=== PATIENT | female | born 1970 | race Hispanic/Latino ===

== ENCOUNTER 2022-04-20 07:01 | Day surgery (SDC) | payer BC ==
--- NOTE | 2022-04-19 17:22 | Short Stay Summary ---
Short Stay Documentation Narrative H&P: Patient is a 51-year-old female with a past medical history of hypertension, diabetes, hyperlipidemia, who has been having sharp chest pain, lightheadedness, dizziness, and dyspnea. Patient also has a family history of heart disease patient also had abnormal Lexiscan MPI stress test. Patient was scheduled for cardiac cath for further evaluation. . - History Principal diagnosis: Chest pain/abnormal stress test Past Medical History: diabetes, hypertension, hyperlipidemia Past Surgical History: hysterectomy Social history: no smoking - Physical exam General appearance: no acute distress Integumentary: no rash, no growths HEENT: PERRLA, EOMI Lungs: Clear to auscultation Heart: Regular rate, Normal S1, Normal S2 Gastrointestinal: normoactive bowel sounds Extremities: no ischemia, No edema Neurological: Normal speech - Brief post op/procedure progress note Date of procedure: 04/20/22 Pre-op diagnosis: Abnormal stress test Post-op diagnosis: other (Moderate nonobstructive coronary artery) Anesthesia: local Estimated blood loss: minimal - Hospital course Hospital course: Patient presents today for cardiac cath due to abnormal stress test. Patient found to have moderate nonobstructive coronary artery disease. Patient tolerated procedure well with no complication. Patient to be discharged home and started on aspirin and Ranexa 500 mg p.o. twice daily due to chest pain. Plan of care discussed with both patient and patient's family member who verbalized understanding and acknowledgment - Disposition Condition at discharge: Good Disposition: 01 HOME / SELF CARE / HOMELESS - Discharge Diagnoses (1) CAD (coronary artery disease) Status: Acute (2) Hypertension Status: Acute (3) Diabetes Status: Acute (4) Hyperlipidemia Status: Acute Short Stay Discharge Plan Activity: advance as tolerated Diet: low fat, low cholesterol, low salt Wound: keep clean and dry, per your surgeon's advice Follow up with: PRISCILLA TORRES MD [Staff Physician] - 7 Days (05/04/2022 at 3:15 PM and [place]) Forms: CardCath PCI D/C Instructions Prescriptions: Ranolazine ER [Ranexa ER] 500 mg PO BID 30 Days #60 tab.er.[id number]
[2022-04-20] MEDS ORDERED: ASPIRIN EC 325 MG TAB PO NR (07:53)
[2022-04-20] MEDS ORDERED: ASPIRIN EC 81 MG TAB PO ONE (08:17)
[2022-04-20] MEDS ORDERED: HEPARIN 10,000 UNITS/10 ML VIAL ONE (08:23)
[2022-04-20] MEDS ORDERED: VERAPAMIL 5 MG/2 ML INJ ONE (08:23)
[2022-04-20 08:25] LABS: Basophils % (Auto) 0.5 % (0.0-1.8); Eosinophils # (Auto) 0.1 K/mm3 (0.0-0.4); Eosinophils % (Auto) 1.7 % (0.0-4.3); Hematocrit 43.1 % (30.3-42.9); Hemoglobin 14.8 gm/dl (10.1-14.3); Lymphocytes # (Auto) 2.4 K/mm3 (1.2-5.4); Lymphocytes % (Auto) 48.3 % (13.4-35.0); Mean Corpuscular HGB Conc 34 % (30-34); Mean Corpuscular Volume 87 fl (79-97); Monocytes # (Auto) 0.4 K/mm3 (0.0-0.8); Monocytes % (Auto) 7.5 % (0.0-7.3); Platelet Count 153 K/mm3 (140-440); Red Blood Count 4.95 M/mm3 (3.65-5.03); Red Cell Distribution Width 14.1 % (13.2-15.2)
[2022-04-20 08:39] LABS: Blood Urea Nitrogen 12 mg/dL (7-17); Calcium 10.1 mg/dL (8.4-10.2); Hemolysis Index 26
[2022-04-20 08:42] LABS: BUN/Creatinine Ratio 40
[2022-04-20] MEDS: SODIUM CHLORIDE 0.9% 500 ML 500 ML IV SCH ×3 (08:52→10:15)
[2022-04-20] MEDS: NITROGLYCERIN SYRINGE 3 ML ONE ×2 (08:53→10:18)
[2022-04-20] MEDS: HEPARIN/NS 5000 UNIT/500ML 1,000 ML IR ONE ×2 (08:54→10:18)
[2022-04-20 08:58] LABS: INR 0.92 (0.87-1.13)
[2022-04-20 08:59] LABS: Partial Thromboplastin Time 26.9 Sec. (24.2-36.6)
[2022-04-20] MEDS ORDERED: INSULIN REGULAR, HUMAN 100 UNITS/1 ML SUB-Q NR (09:09)
[2022-04-20] MEDS: MIDAZOLAM 2 MG/2 ML INJ ONE ×2 (09:21→10:14)
[2022-04-20] MEDS: fentaNYL 100 MCG/2 ML INJ ONE ×2 (09:22→10:15)
[2022-04-20] MEDS: LIDOCAINE (1%) 10 MG/1 ML VIAL 20 ML MDV ONE ×2 (09:24→10:17)
--- NOTE | 2022-04-20 11:19 | Cardiac Catherization Report ---
DATE OF PROCEDURE: 04/20/2022 REFERRING PHYSICIAN: Celestino Pantoja M.D. INDICATIONS FOR PROCEDURE: The patient is a very pleasant 51-year-old female with multiple risk factors including diabetes and hypertension, presents with chest pain and abnormal nuclear stress test, referred for left heart catheterization. Risks, benefits and alternatives discussed at length prior to obtaining informed consent. PROCEDURE IN DETAIL: The patient was brought to laborer tin can in a postabsorptive state, prepped and draped in sterile fashion. Kota's test in right hand was normal. A 2 mL of 2% lidocaine used to anesthetize the right wrist. A standard 6-Lao hydrophilic sheath used to cannulate the right radial artery via modified Seldinger technique. All exchanges performed to exchange a J-tip guidewire. JL3.5 catheter was used to engage the left main. No dampening or ventricularization. Cineangiography performed in multiple projections. JR4 catheter used to cross the aortic valve under fluoroscopic guidance. Left ventriculography performed in 30-degree ORELLANA 30-degree BALA projections via hand injections, catheter flushed. Manual pullback performed with continuous pressure monitoring. Catheter was used to engage the right coronary. No dampening or ventricularization. Cineangiography performed in multiple projections. Next, catheter removed from the body of wire, sheath removed. Manual pressure used to achieve hemostasis. I directly supervised the administration of moderate sedation with fentanyl and Versed from 10:00 a.m. to 10:29 a.m. No immediate complications identified. DATA: Aortic pressure is 120/80, LV pressure is 120, LVEDP of 5 mmHg. Left ventriculography reveals normal systolic performance, estimated ejection fraction of 60-65%. No evidence of aortic stenosis. The patient remained in normal sinus rhythm throughout the procedure. CORONARY ANATOMY: This is a right dominant system. Left main is short and trifurcates into left anterior descending, ramus intermedius and left circumflex. Left circumflex is a moderate sized vessel, courses AV groove, gives an OM trunk, there is a 50-60% proximal OM1 stenosis noted, ANG 3 flow, smooth, nonulcerated. Ramus intermedius without significant disease. LAD, courses anterior intergroove, wraps around the apex, no significant disease. Right coronary is a large vessel, courses AV groove, distally bifurcates into posterior and posterolateral branches, no discrete stenoses. Strongly right dominant system. Recommend medical management. CONCLUSION: 1. Moderate nonobstructive disease in this strongly right dominant system. Approximately 50% stenosis of proximal OM1, small vessel, ANG 3 flow. Recommend medical management for now. No other obstructive disease identified. 2. Normal left ventricular systolic performance, estimated ejection fraction 55-60%. 3. No evidence of aortic stenosis. 4. Normal LVEDP. We will add Ranexa. Recommend aggressive medical therapy. If she continues to have chest pain, consider elective PCI of left circumflex, but I do not believe this is causing symptoms at this point. We will continue to follow. Continue with aggressive primary and secondary prevention measures. We will make sure she is on optimal medical therapy and so forth. Results of procedure explained to the patient and family. All questions and concerns were addressed. TID: [id number] RECEIPT: [id number] MAGALI/IRAM
[2022-04-20] MEDS ORDERED: traMADol 50 MG TAB PO PRN (12:00)
[2022-04-20] MEDS ORDERED: HYDROcodone/ACETAMINOPHEN 5-325 MG TAB PO PRN (12:00)
[2022-04-20 13:10] VITALS: BP 123/90
--- NOTE | 2022-04-21 10:32 | Electrocardiograph Report ---
[facility] Test Date: 2022-04-20 Test Time: 07:55:37 Pat Name: OMKAR ZAMBRANO Department: Room: Gender: F Campaign Developer: MIRELLA : 1970 Requested By: BRUCE SCOTT Order Number: [id number] Reading MD: Celestino Pantoja Measurements Intervals [place] Rate: 93 P: 23 AR: 180 QRS: 0 QRSD: 93 T: 17 QT: 348 QTc: 434 Interpretive Statements Sinus rhythm Inferior infarct, old No previous ECG available for comparison Electronically Signed On 04-21-2022 10:31:47 EDT by Celestino Pantoja
== END 2022-04-20 14:08 | disposition home or self-care (01) ==
LOC: CATHLABREC 07:01
PROVIDERS: ATTEND Internal Medicine
DX: R07.89 Other chest pain (principal); R94.39 Abnormal result of other cardiovascular function study; I25.10 Atherosclerotic heart disease of native coronary artery without angina pectoris; E11.9 Type 2 diabetes mellitus without complications; E78.5 Hyperlipidemia, unspecified; I10 Essential (primary) hypertension; Z87.01 Personal history of pneumonia (recurrent); K21.9 Gastro-esophageal reflux disease without esophagitis; M19.90 Unspecified osteoarthritis, unspecified site; Z80.3 Family history of malignant neoplasm of breast; Z88.8 Allergy status to other drugs, medicaments and biological substances; Z79.899 Other long term (current) drug therapy; Z87.891 Personal history of nicotine dependence; Z90.710 Acquired absence of both cervix and uterus; Z98.890 Other specified postprocedural states
CPT/HCPCS: 36415; 80048; 82962; 85025; 85610; 85730; 93005; 93458; 99156; 99157; C1894; J1644; J1815; J2250; J3010; J7040; Q9967